=== PATIENT | female | born 1965 | race Caucasian/White ===

== ENCOUNTER 2019-12-28 07:08 | Outpatient (REF) | payer OTHER, SELFPAY ==
[2019-12-28 07:43] LABS: COVID-19 Test Negative (Negative)
== END 2019-12-28 07:09 | disposition home or self-care (01) ==
LOC: HO.LAB 07:08
PROVIDERS: Visit Provider Internal Medicine
DX: Z20.828 Contact with and (suspected) exposure to other viral communicable diseases (principal)
CPT/HCPCS: 87635

== ENCOUNTER 2020-01-05 12:52 | Outpatient (REF) | payer OTHER, SELFPAY ==
[2020-01-05 13:15] LABS: COVID-19 Test Negative (Negative)
== END 2020-01-05 12:53 | disposition home or self-care (01) ==
LOC: HO.LAB 12:52
PROVIDERS: Visit Provider Internal Medicine
DX: Z20.828 Contact with and (suspected) exposure to other viral communicable diseases (principal)
CPT/HCPCS: 87635

== ENCOUNTER 2020-10-04 13:55 | Emergency (ER) | payer OTHER, SELFPAY ==
--- NOTE | ~2020-10-04 | CT_ITS ---
EXAMINATION: CT CHEST WITH CONTRAST CLINICAL INFORMATION: Right-sided lymphadenopathy. COMPARISON: None TECHNIQUE: Multidetector volumetric CT imaging of the chest was obtained after the administration of 50 mL of Omnipaque 350 intravenous contrast without immediate adverse reactions. Axial MIP volume rendering provided. Sagittal and coronal reformatted images were obtained. This CT examination was performed using dose optimization techniques as appropriate, variously including the following: *Automated exposure control *Adjustment of mA and/or kV according to patient size (this includes techniques or standardized protocols for targeted exams where dose is matched to indication/reason for exam; i.e. extremities or head) *Use of iterative reconstruction technique DLP: 249 mGy-cm FINDINGS: COIL PLACER: Unremarkable. LUNGS: The lungs are well-expanded and clear of acute pneumonic process. There is a 2 mm nodule right lower lobe axial image 308/5. Minimal atelectatic changes seen in the lingula. There is subpleural linear hypodensity question postsurgical sutures sutures from previous intervention. MEDIASTINUM: The thyroid lobes are symmetrical and normal. The central trachea and the bronchi are are widely patent. Heart size and the great vessels are normal caliber. No abnormal size mediastinal or hilar lymph nodes seen. There is a small calcified right pretracheal 5 mm lymph node axial image 31/4. PLEURA: There is no pleural effusion. No pleural mass or thickening. AXILLA: There are small shotty bilateral axillary lymph nodes. The largest left axillary lymph node measures 7 mm UPPER ABDOMEN: Visualized liver, spleen, bilateral adrenal glands, pancreas and gallbladder appears unremarkable. OSSEOUS STRUCTURES: No lytic or sclerotic process seen. CT/CT chest w con IMPRESSION: Postsurgical changes left upper lobe laterally. No recurrent mass seen. 2 mm nodule right lower lobe. No additional nodules seen. No abnormal mediastinal or hilar adenopathy. Small shotty lymph nodes in bilateral axilla.
[2020-10-04 12:31] LABS: Alanine Aminotransferase 25 U/L (0-31); Albumin Level 4.5 g/dL (3.5-5.0); Alkaline Phosphatase 75 U/L (39-117); Anion Gap 12 (12-20); Aspartate Amino Transferase 21 U/L (5-31); Bilirubin Total 0.5 mg/dL (0.0-1.0); Blood Urea Nitrogen 13 mg/dL (9-16); Calcium 9.9 mg/dL (8.4-10.2); Carbon Dioxide 31 mmol/L (22-29); Chloride 101 mmol/L (96-108); Estimated Glomerular Filt Rate > 60; Glucose Random 93 mg/dL (60-115); Potassium 4.1 mmol/L (3.3-5.1); Sodium 140 mmol/L (135-145); Total Protein 7.6 g/dL (6.5-8.0)
[2020-10-04 13:29] LABS: MANUAL DIFF FLAG NO
[2020-10-04 13:40] LABS: Basophils Percent Auto 0.4 % (0-2); Eosinophils Absolute Auto 0.1 X10*3/uL (0.0-0.4); Eosinophils Percent Auto 1.7 % (0-4); Hemoglobin 14.5 g/dl (12.0-16.0); Imm Gran Abs Auto 0.01 X10*3/uL (0.00-0.03); Imm Gran Pct Auto 0.1 % (0.0-0.4); Lymphocytes Absolute Auto 2.4 X10*3/uL (1.2-4.9); Lymphocytes Percent Auto 33.6 % (20-40); Mean Corpuscular HGB Conc 33.7 g/dl (31.0-35.0); Mean Corpuscular Hemoglobin 30.7 pg (27.0-33.0); Mean Corpuscular Volume 91.1 fL (80-98); Mean Platelet Volume 11.4 fL (9.4-12.3); Monocytes Absolute Auto 0.5 X10*3/uL (0.1-1.2); Monocytes Percent Auto 7.3 % (2-11); Neutrophils Absolute Auto 4.1 X10*3/uL (2.0-8.3); Neutrophils Percent Auto 56.9 % (45-73); Platelet Count 246 X10*3/uL (160-400); Red Blood Count 4.72 X10*6/uL (4.20-5.50); Red Cell Distribution Width 12.9 % (11.0-16.0); White Blood Count 7.1 X10*3/uL (4.8-10.8)
[2020-10-04 13:59] VITALS: BP 134/78; PULSE 70; RESP 16; TEMP 36.8; O2SAT 98; BMI 29.9
[2020-10-04] MEDS: iohexoL 350 MG/ML 100 ML INFUS..BTL IV (14:04)
--- NOTE | 2020-10-04 14:25 | ED_ITS ---
HPI - General Adult General Chief complaint: General Medical Time Seen by Provider: 10/04/20 14:00 Source: patient Mode of arrival: ambulatory Limitations: no limitations History of Present Illness HPI narrative: Dorsally being evaluated today for right sternal supraclavicular swelling and right axillary fullness for 4 weeks. Patient states that she notice this changes approximately 4 weeks ago, denies pain, denies trauma. Two weeks ago she had an mammogram done, per patient her results were within normal limits. Patient denies fever, chills, no night sweats, no chest pain, no shortness of breath. Patient has history of pulmonary nodule in the left lower lung, which was excised several years ago, nondiagnostic. Related Data Allergies Allergy/AdvReac Type Severity Reaction Status Date / Time No Known Allergies Allergy Unverified 11/23/19 17:17 [No Known Allergies*] Review of Systems 2 Review of Systems: Constitutional : No Weight loss, No Fever, No Chills, No Night Sweats, No Fatigue, No Malaise ENT/Mouth : No Hearing loss, No Ear Pain, No Nasal Congestion, No Sinus Pain, No Hoarseness, No sore throat, No Rhinorrhea, No Swallowing Difficulty Eyes: No Eye Pain, No Swelling, No Redness, No Foreign Body, No Discharge, No Vision Changes Cardiovascular : No Chest Pain, No SOB, No Dyspnea on Exertion, No Orthopnea, No Edema, No Palpitations Respiratory : No Cough, No Sputum, No Wheezing, No Smoke Exposure, No Dyspnea Gastrointestinal : No Nausea, No Vomiting, No Diarrhea, No Constipation, No abdominal Pain, No Hematochezia, No Melena Genitourinary : no irregular bleeding, No Dysuria, No Urinary Frequency, No Hematuria, No Urinary Incontinence, No Urgency, No Flank Pain, No Urinary Flow Changes, No Hesitancy Musculoskeletal : No joint pain, No Myalgias, No Joint Swelling Skin : No Skin Lesions, No rash Neuro : No Weakness, No Numbness, No Paresthesias, No Loss of Consciousness, No Dizziness, No Headache Psych : No Anxiety/Panic, No Depression, No SI/HI/AH/VH, No Social Issues, Heme/Lymph: No Bruising, No Bleeding, supraclavicular and right sternal swelling, right axillary fullness Endocrine : No Polyuria, No Polydipsia, No Temperature Intolerance [facility] Past Medical History Medical History HTN (hypertension) Social History Social History Patient : No Physical Exam Vital Signs: Vital Signs: Last Vital Signs Temp 98.2 F 10/04/20 13:59 Pulse 70 10/04/20 13:59 Resp 16 10/04/20 13:59 BP 134/78 10/04/20 13:59 Pulse Ox 98 10/04/20 13:59 Body Mass Index 29.9 Const: Other: Appearance: Alert. Oriented X3. No acute distress. Eyes: Pupils equal, round and reactive to light. ENT: Pharynx normal. Neck: Normal inspection. Neck supple. No lymph nodes noted. No crepitus CVS: Normal heart rate and rhythm. Pulses normal. Normal S1 and S2, noticeable supraclavicular swelling on palpation, nontender Respiratory: No respiratory distress. Breath sounds normal. No Wheezing. No rales Abdomen: Soft and nontender. No rigidity. No distention. Skin: Skin warm and dry. Normal skin color. Normal skin turgor. Extremities: No lower extremity edema. No lower extremity edema. No Lacerations. No Rash Neuro: Oriented X 3. No motor deficit. No sensory deficit. Moving all extermities. No slurred speech. Course Course Course Narrative: Discussed the labs and imaging with the patient, no acute findings other than bilateral axillary lymph nodes. Medical Decision Making Lab Data Result diagrams: 10/04/20 Unknown 10/04/20 11:45 Labs: Lab Results 10/04/20 10/04/20 Range/Units 11:45 Unknown WBC 7.1 (4.8-10.8) X10*3/uL RBC 4.72 (4.20-5.50) X10*6/uL Hgb 14.5 (12.0-16.0) g/dl Hct 43.0 (37-47) % MCV 91.1 (80-98) fL MCH 30.7 (27.0-33.0) pg MCHC 33.7 (31.0-35.0) g/dl RDW 12.9 (11.0-16.0) % Plt Count 246 (160-400) X10*3/uL MPV 11.4 (9.4-12.3) fL Immature Gran % (Auto) 0.1 (0.0-0.4) % Neut % (Auto) 56.9 (45-73) % Lymph % (Auto) 33.6 (20-40) % [place] % (Auto) 7.3 (2-11) % Eos % (Auto) 1.7 (0-4) % Baso % (Auto) 0.4 (0-2) % Lymph # (Auto) 2.4 (1.2-4.9) X10*3/uL [place] # (Auto) 0.5 (0.1-1.2) X10*3/uL Eos # (Auto) 0.1 (0.0-0.4) X10*3/uL Baso # (Auto) 0.0 (0.0-0.2) X10*3/uL Abs Immat Gran (auto) 0.01 (0.00-0.03) X10*3/uL Absolute Neuts (auto) 4.1 (2.0-8.3) X10*3/uL Absolute Nucleated RBC 0.000 (0.0-0.012) X10*3/uL Nucleated RBC % (auto) 0.0 (0.0-0.2) /100WBC Sodium 140 (135-145) mmol/L Potassium 4.1 (3.3-5.1) mmol/L Chloride 101 (96-108) mmol/L Carbon Dioxide 31 H (22-29) mmol/L Anion Gap 12 (12-20) BUN 13 (9-16) mg/dL Creatinine 0.85 (0.5-1.4) mg/dL Estim Creat Clear Calc Not Reportable Estimated GFR > 60 Random Glucose 93 (60-115) mg/dL Calcium 9.9 (8.4-10.2) mg/dL Total Bilirubin 0.5 (0.0-1.0) mg/dL AST 21 (5-31) U/L ALT 25 (0-31) U/L Alkaline Phosphatase 75 (39-117) U/L Total Protein 7.6 (6.5-8.0) g/dL Albumin 4.5 (3.5-5.0) g/dL Imaging Data CT of the chest with contrast: Radiologist's impression: LUNGS: The lungs are well-expanded and clear of acute pneumonic process. There is a 2 mm nodule right lower lobe axial image 308/5. Minimal atelectatic changes seen in the lingula. There is subpleural linear hypodensity question postsurgical sutures sutures from previous intervention. MEDIASTINUM: The thyroid lobes are symmetrical and normal. The central trachea and the bronchi are are widely patent. Heart size and the great vessels are normal caliber. No abnormal size mediastinal or hilar lymph nodes seen. There is a small calcified right pretracheal 5 mm lymph node axial image 31/4. PLEURA: There is no pleural effusion. No pleural mass or thickening.? AXILLA: There are small shotty bilateral axillary lymph nodes. The largest left axillary lymph node measures 7 mm? UPPER ABDOMEN: Visualized liver, spleen, bilateral adrenal glands, pancreas and gallbladder appears unremarkable.? OSSEOUS STRUCTURES: No lytic or sclerotic process seen.? CT/CT chest w con IMPRESSION: Postsurgical changes left upper lobe laterally. No recurrent mass seen. 2 mm nodule right lower lobe. No additional nodules seen. ? No abnormal mediastinal or hilar adenopathy. Small shotty lymph nodes in bilateral axilla. Discharge Plan Discharge Clinical Impression: Supraclavicular fossa fullness Patient Disposition: Home, Self-Care Additional Instructions: Please follow-up with your primary care physician tomorrow. If you have any worsening or new symptoms, please return to the emergency room or call 911
== END 2020-10-04 14:44 | disposition home or self-care (01) ==
LOC: HO.ED 13:56
PROVIDERS: Emergency Provider Emergency Medicine; PCP Family Medicine; Visit Provider Emergency Medicine
DX: R22.1 Localized swelling, mass and lump, neck (principal); I10 Essential (primary) hypertension
CPT/HCPCS: 36415; 71260; 80053; 85025; 99282; 99284; Q9967